=== PATIENT | female | born 1985 | race American Indian/Alaskan Native ===

== ENCOUNTER 2017-03-09 17:03 | Emergency (ER) | payer MEDICAID ==
[2017-03-09 17:51] LABS: Basophils % (Auto) 0.8 % (0.0-1.8); Eosinophils % (Auto) 6.9 % (0.0-4.3); Hemoglobin 12.5 gm/dl (10.1-14.3); Mean Corpuscular HGB Conc 34 % (30-34); Mean Corpuscular Hemoglobin 28 pg (28-32); Mean Corpuscular Volume 83 fl (79-97); Platelet Count 282 K/mm3 (140-440); Red Blood Count 4.43 M/mm3 (3.65-5.03); Red Cell Distribution Width 14.4 % (13.2-15.2); White Blood Count 8.8 K/mm3 (4.5-11.0)
[2017-03-09 18:13] LABS: Alanine Aminotransferase 12 units/L (7-56); Albumin 4.2 g/dL (3.9-5); Albumin/Globulin Ratio 1.4 %; Alkaline Phosphatase 64 units/L (35-129); BUN/Creatinine Ratio 18.33; Blood Urea Nitrogen 11 mg/dL (7-17); Calcium 9.3 mg/dL (8.4-10.2); Carbon Dioxide 21 mmol/L (22-30); Glucose 114 mg/dL (65-100); Total Protein 7.3 g/dL (6.3-8.2)
[2017-03-09 18:14] LABS: Anion Gap 20 mmol/L; Potassium 3.7 mmol/L (3.6-5.0); Sodium 135 mmol/L (137-145)
--- NOTE | 2017-03-09 18:43 | XRay Report ---
FINAL REPORT EXAM: XR CHEST ROUTINE 2V HISTORY: Dyspnea TECHNIQUE: 2 view examination of the chest PRIORS: None FINDINGS: Limited examination due to prominent soft tissue attenuation. There is no visible pulmonary consolidation, pleural effusion, or pneumothorax. Cardiac silhouette size is normal without vascular congestion. No visible acute pathology in the regional skeleton. IMPRESSION: No evidence of acute cardiopulmonary disease in the visualized chest
--- NOTE | 2017-03-09 20:15 | Emergency Department Report ---
HPI - General Chief Complaint: Dyspnea/Respdistress Time Seen by Provider: 03/09/17 20:12 - HPI HPI: 32-year-old -[place] female, states she woke up this morning with tightness in her chest, accompanied by shortness of breath. Patient denies any nausea or vomiting, diaphoresis, or leg swelling. She denies any prior episodes of such symptoms. She also noticed that her blood pressure was higher than usual. She stated that she have a strong family history of hypertension. ED Past Medical Hx - Past Medical History Hx Hypertension: Yes Hx Psychiatric Treatment: Yes (Hx at [facility]) Additional medical history: post depression - Surgical History Additional Surgical History: c section (2011) - Social History Smoking Status: Current Every Day Smoker Substance Use Type: None - Medications Home Medications: Home Medications Medication Instructions Recorded Confirmed Last Taken Type Citalopram [celeXA] 10 mg PO QDAY 01/08/14 11/07/14 10/23/14 History Ibuprofen [Motrin 600 MG tab] 600 mg PO Q8H PRN #20 tablet 10/23/14 11/07/14 Unknown Rx Ibuprofen [Motrin 800 MG tab] 800 mg PO Q8HR PRN #30 tablet 05/23/15 Unknown Rx Sulfamethoxazole/Trimethoprim 1 each PO BID #14 tablet 05/23/15 Unknown Rx [Bactrim DS TAB] Tobramycin 0.3% [Tobrex] 1 drop OTIC Q8HR #1 bottle 02/06/16 Unknown Rx Famotidine [Pepcid] 20 mg PO QDAY #20 tablet 04/17/16 Unknown Rx ED Review of Systems ROS: Stated complaint: SOB/ELEVATED BP Other details as noted in HPI Comment: All other systems reviewed and negative Respiratory: shortness of breath Cardiovascular: chest pain Physical Exam - Physical Exam Vital Signs: Vital Signs 03/09/17 17:26 Temperature 98.4 F Pulse Rate 80 Respiratory 20 Rate Blood Pressure 156/98 Blood Pressure 156/98 [Right] O2 Sat by Pulse 100 Oximetry Physical Exam: Gen. alert and oriented 3 in no distress Head atraumatic normocephalic Eyes PERR LA EOMI Chest regular rate and rhythm normal S1-S2 lungs clear bilaterally Abdomen soft nondistended Back no point tenderness paravertebral tenderness Neuro no focal deficit. Psych normal mood. ED Course Vital Signs 03/09/17 17:26 Temperature 98.4 F Pulse Rate 80 Respiratory 20 Rate Blood Pressure 156/98 Blood Pressure 156/98 [Right] O2 Sat by Pulse 100 Oximetry ED Medical Decision Making - Lab Data Result diagrams: 03/09/17 17:37 03/09/17 17:37 Critical care attestation.: If time is entered above; I have spent that time in minutes in the direct care of this critically ill patient, excluding procedure time. ED Disposition Clinical Impression: Chest pain Disposition: DC-01 TO HOME OR SELFCARE Is pt being admited?: No Does the pt Need Aspirin: No Condition: Stable Instructions: Chest Pain (ED)
[2017-03-09] MEDS ORDERED: ASPIRIN PO SCH (21:00)
[2017-03-09 21:11] LABS: Bilirubin,Urine NEG (Negative); Blood,Urine NEG (Negative); Ketones,Urine NEG (Negative); Leukocyte Esterase,Urine NEG (Negative); Mucus,Urine FEW /HPF; Nitrite,Urine NEG (Negative); Protein,Urine <15 mg/dL mg/dL (Negative); Urobilinogen,Urine < 2.0 mg/dL (<2.0); WBC,Urine < 1.0 /HPF (0.0-6.0)
[2017-03-09] MEDS ORDERED: NACL ONE (21:59)
[2017-03-09 23:09] VITALS: BP 148/86
--- NOTE | 2017-03-09 23:14 | Cat Scan Report ---
FINAL REPORT PROCEDURE: CT ANGIO CHEST TECHNIQUE: Computerized tomographic angiography of the chest was performed after the IV injection of iodinated nonionic contrast including image processing. The image data was postprocessed using 2-dimensional multiplanar reformatted (MPR) and 3-dimensional (MIP and/or volume rendered) techniques. HISTORY: SOB, CHEST PAIN, HIGH DDIMER COMPARISON: No prior studies are available for comparison. FINDINGS: Heart and pericardium: Normal. Thoracic aorta: Normal. Pulmonary vasculature: Normal. Lymph nodes: No enlarged thoracic lymph nodes. Lungs: Normal. Pleural space: No effusion, thickening, or pneumothorax. Musculoskeletal structures: No significant abnormality. Upper abdominal structures: No significant abnormality. IMPRESSION: No evidence of pulmonary embolism. No acute pulmonary process.
== END 2017-03-10 00:14 | disposition home or self-care (01) ==
LOC: ED 17:03
DX: R07.89 Other chest pain (principal); I10 Essential (primary) hypertension; F17.200 Nicotine dependence, unspecified, uncomplicated
CPT/HCPCS: 36415; 71020; 71275; 80053; 81001; 84484; 85025; 85379; 93005; 93010; 99284; Q9967